=== PATIENT | male | born 1940 | race Caucasian/White ===

== ENCOUNTER 2021-02-02 18:06 | Emergency (ER) | payer MEDICARE ==
[2021-02-02 19:48] LABS: BASOPHIL 1.1 % (0-2); EOSINOPHIL 1.7 % (0-7); HCT 25.1 % (42.0-52.0); LYMPHOCYTE 24.3 % (15-48); MCH 25.9 pg (25.0-31.0); MCHC 29.5 g/dL (32.0-36.0); MCV 87.8 fL (78.0-100.0); MONOCYTE 8.2 % (0-12); MPV 9.3 fL (6.0-9.5); NEUTROPHIL 57.5 % (41-80); NRBC 3.2; PLT 166 K/uL (150-400); RBC 2.86 M/uL (4.70-6.00); RDW 22.5 % (11.5-14.0)
[2021-02-02 19:49] LABS: HGB 7.4 g/dl (13.2-18.0); WBC 5.4 K/uL (4.0-10.5)
[2021-02-02 20:06] LABS: ALBUMIN 2.5 g/dL (3.4-5.0); BILIRUBIN - TOTAL 0.3 mg/dL (0.2-1.0); BUN/CREAT RATIO (CALC) 17.1 RATIO; CREATININE 1.05 mg/dL (0.67-1.17); GLOBULIN (CALCULATION) 3.5 g/dL; MAGNESIUM 2.4 mg/dL (1.8-2.4); POTASSIUM 5.5 mmol/L (3.5-5.1)
[2021-02-02 20:19] LABS: BILIRUBIN NEGATIVE (NEGATIVE); BLOOD NEGATIVE Ery/uL (NEGATIVE); CLARITY CLEAR (CLEAR); COLOR YELLOW (YELLOW); GLUCOSE (U) NORMAL (NORMAL); LEUKOCYTES NEGATIVE Leu/uL (NEGATIVE); NITRITE NEGATIVE (NEGATIVE); PROTEIN 1+ mg/dL (NEGATIVE); SPECIFIC GRAVITY 1.015 (1.001-1.030); UROBILINOGEN 0.2 mg/dL (0.2-1.0); pH 7.5 (5.0-9.0)
[2021-02-02 20:24] LABS: SQUAMOUS EPITHELIAL CELLS RARE
== END 2021-02-02 21:48 | disposition home or self-care (01) ==
LOC: FER 18:06
PROVIDERS: Emergency Medicine Emergency Medical Services
DX: E11.649 Type 2 diabetes mellitus with hypoglycemia without coma (principal); I10 Essential (primary) hypertension; Z88.5 Allergy status to narcotic agent; Z88.0 Allergy status to penicillin; Z87.891 Personal history of nicotine dependence; Z98.890 Other specified postprocedural states
CPT/HCPCS: 36415; 80053; 81001; 83036; 83605; 83690; 83735; 84484; 85025; 93005; J7030

== ENCOUNTER 2021-02-17 17:38 | Day surgery (SDCO) | payer MEDICARE ==
[2021-02-17 18:59] LABS: BASOPHIL 0.7 % (0-2); HCT 21.9 % (42.0-52.0); HGB 6.6 g/dl (13.2-18.0); LYMPHOCYTE 27.8 % (15-48); MCH 27.5 pg (25.0-31.0); MCHC 30.1 g/dL (32.0-36.0); MCV 91.3 fL (78.0-100.0); MPV 10.2 fL (6.0-9.5); NRBC 3.4; PLT 172 K/uL (150-400); RDW 25.6 % (11.5-14.0)
[2021-02-17 19:05] LABS: ALBUMIN 2.6 g/dL (3.4-5.0); BILIRUBIN - TOTAL 0.2 mg/dL (0.2-1.0); BUN/CREAT RATIO (CALC) 15.8 RATIO; CREATININE 1.33 mg/dL (0.67-1.17); GLOBULIN (CALCULATION) 3.5 g/dL; POTASSIUM 4.9 mmol/L (3.5-5.1); TOTAL PROTEIN 6.1 g/dL (6.4-8.2)
[2021-02-17 19:11] LABS: LACTIC ACID 2.6 mmol/L (0.4-1.9)
[2021-02-17 19:13] LABS: BILIRUBIN NEGATIVE (NEGATIVE); BLOOD NEGATIVE Ery/uL (NEGATIVE); CLARITY CLEAR (CLEAR); COLOR YELLOW (YELLOW); GLUCOSE (U) NORMAL (NORMAL); LEUKOCYTES NEGATIVE Leu/uL (NEGATIVE); NITRITE NEGATIVE (NEGATIVE); PROTEIN 2+ mg/dL (NEGATIVE); SPECIFIC GRAVITY 1.025 (1.001-1.030); UROBILINOGEN 0.2 mg/dL (0.2-1.0); pH 5.5 (5.0-9.0)
[2021-02-17 19:15] LABS: SQUAMOUS EPITHELIAL CELLS RARE
[2021-02-17 21:28] LABS: CORONAVIRUS 2019 SARS-COV-2 NEGATIVE (NEGATIVE); INFLUENZA A NAA NEGATIVE (NEGATIVE)
[2021-02-18] MEDS ORDERED: LOPID600 MG PO (02:09)
[2021-02-18] MEDS ORDERED: PRAVACHOL20 MG PO (02:09)
[2021-02-18] MEDS ORDERED: NORVASC 10MG TA10 MG PO (02:11)
[2021-02-18] MEDS ORDERED: PERCOCET 5-3251 EACH PO (02:12)
[2021-02-18] MEDS ORDERED: CLARITIN10 MG PO (02:13)
[2021-02-18] MEDS ORDERED: COREG 6.25MG6.25 MG PO (02:13)
[2021-02-18] MEDS ORDERED: BICALUTAMIDE50 MG PO (02:14)
[2021-02-18] MEDS ORDERED: MOBIC7.5 MG PO (02:14)
[2021-02-18] MEDS ORDERED: PRINIVIL20 MG PO (02:15)
[2021-02-18] MEDS ORDERED: TERAZOSIN 2 MG C2 MG PO (02:16)
[2021-02-18] MEDS ORDERED: CALCIUM CARBO2500 GM PO (02:19)
[2021-02-18 11:17] LABS: BASOPHIL 0.9 % (0-2); EOSINOPHIL 1.7 % (0-7); HCT 32.2 % (42.0-52.0); LYMPHOCYTE 22.2 % (15-48); MCH 27.4 pg (25.0-31.0); MCHC 30.7 g/dL (32.0-36.0); MCV 89.2 fL (78.0-100.0); MONOCYTE 7.3 % (0-12); MPV 9.3 fL (6.0-9.5); NEUTROPHIL 60.3 % (41-80); NRBC 3.1; PLT 152 K/uL (150-400); RBC 3.61 M/uL (4.70-6.00); RDW 21.6 % (11.5-14.0); WBC 6.5 K/uL (4.0-10.5)
[2021-02-18 11:19] LABS: HGB 9.9 g/dl (13.2-18.0)
[2021-02-18 11:30] LABS: ALBUMIN 2.7 g/dL (3.4-5.0); BILIRUBIN - TOTAL 0.3 mg/dL (0.2-1.0); BUN/CREAT RATIO (CALC) 15.8 RATIO; CREATININE 1.01 mg/dL (0.67-1.17); GLOBULIN (CALCULATION) 3.5 g/dL; POTASSIUM 4.7 mmol/L (3.5-5.1); TOTAL PROTEIN 6.2 g/dL (6.4-8.2)
== END 2021-02-18 13:13 | disposition home health service (06) ==
LOC: FER 17:38 → FMS 22:07
PROVIDERS: Emergency Medicine; Emergency Medicine Emergency Medical Services; Nurse Practitioner; ADMIT Allergy & Immunology Allergy
DX: D64.9 Anemia, unspecified (principal); I95.89 Other hypotension; I11.0 Hypertensive heart disease with heart failure; I50.9 Heart failure, unspecified; C61 Malignant neoplasm of prostate; C79.51 Secondary malignant neoplasm of bone; E78.00 Pure hypercholesterolemia, unspecified; E11.9 Type 2 diabetes mellitus without complications; I25.10 Atherosclerotic heart disease of native coronary artery without angina pectoris; I25.2 Old myocardial infarction; M19.90 Unspecified osteoarthritis, unspecified site; M81.0 Age-related osteoporosis without current pathological fracture; E87.1 Hypo-osmolality and hyponatremia; Z87.891 Personal history of nicotine dependence; Z79.899 Other long term (current) drug therapy; Z88.0 Allergy status to penicillin; Z88.5 Allergy status to narcotic agent; Z20.822 Contact with and (suspected) exposure to COVID-19
CPT/HCPCS: 36415; 36430; 71045; 80053; 81001; 82270; 83605; 83735; 83880; 84484; 85025; 86850; 86900; 86901; 86922; 93005; 94010; 94760; 97162; 97166; 97530-GP; 97535; C9113; G0378; J3010; J7030; J7050; P9016; U0002

== ENCOUNTER 2021-02-27 06:17 | Inpatient (IN) | payer MEDICARE ==
[~2021-02-27] VITALS: Ht 172.7 cm; Wt 77.6 kg
[~2021-02-27 06:17] MED LIST: BICALUTAMIDE50 MG PO; CALCIUM CARBO2500 GM PO; CLARITIN10 MG PO; COREG 6.25MG6.25 MG PO; LOPID600 MG PO; MOBIC7.5 MG PO; NORVASC 10MG TA10 MG PO; PERCOCET 5-3251 EACH PO; PRAVACHOL20 MG PO; PRINIVIL20 MG PO; TERAZOSIN 2 MG C2 MG PO
[2021-02-27 06:56] LABS: INR 1.51 (0.9-1.2); PROTHROMBIN TIME 17.3 SECONDS (11.4-13.6)
[2021-02-27 07:07] LABS: BASOPHIL 0.6 % (0-2); EOSINOPHIL 1.6 % (0-7); HCT 17.2 % (42.0-52.0); LYMPHOCYTE 37.9 % (15-48); MCH 28.2 pg (25.0-31.0); MCHC 27.9 g/dL (32.0-36.0); MONOCYTE 7.9 % (0-12); MPV 10.3 fL (6.0-9.5); PLT 181 K/uL (150-400); RDW 22.2 % (11.5-14.0); WBC 17.6 K/uL (4.0-10.5)
[2021-02-27 07:10] LABS: ALBUMIN 2.1 g/dL (3.4-5.0); BILIRUBIN - TOTAL 0.3 mg/dL (0.2-1.0); BUN/CREAT RATIO (CALC) 39.8 RATIO; CREATININE 1.28 mg/dL (0.67-1.17); GLOBULIN (CALCULATION) 2.7 g/dL; TOTAL PROTEIN 4.8 g/dL (6.4-8.2)
[2021-02-27 07:12] LABS: HGB 4.8 g/dl (13.2-18.0); MCV 101.2 fL (78.0-100.0); NEUTROPHIL 38.2 % (41-80)
[2021-02-27 08:01] LABS: LACTIC ACID 14.7 mmol/L (0.4-1.9)
[2021-02-27 09:49] LABS: BILIRUBIN NEGATIVE (NEGATIVE); BLOOD NEGATIVE Ery/uL (NEGATIVE); CLARITY CLEAR (CLEAR); COLOR YELLOW (YELLOW); GLUCOSE (U) NORMAL (NORMAL); LEUKOCYTES NEGATIVE Leu/uL (NEGATIVE); NITRITE NEGATIVE (NEGATIVE); PROTEIN 1+ mg/dL (NEGATIVE); SPECIFIC GRAVITY 1.025 (1.001-1.030); UROBILINOGEN 0.2 mg/dL (0.2-1.0); pH 5.5 (5.0-9.0)
[2021-02-27 10:28] LABS: HCT 28.6 % (42.0-52.0); HGB 8.8 g/dL (13.2-18.0)
[2021-02-27 15:52] LABS: HCT 26.6 % (42.0-52.0); MCH 29.6 pg (25.0-31.0); MPV 9.7 fL (6.0-9.5); RBC 3.01 M/uL (4.70-6.00); RDW 17.3 % (11.5-14.0); WBC 7.9 K/uL (4.0-10.5)
[2021-02-27 16:00] LABS: HGB 8.9 g/dl (13.2-18.0); MCHC 33.5 g/dL (32.0-36.0); MCV 88.4 fL (78.0-100.0)
[2021-02-27] MEDS ORDERED: COREG 6.25MG6.25 MG PO (17:13)
--- NOTE | 2021-02-27 18:26 | NUR ---
[address] DR CONWAY PLACED A RIJ CENTRAL LINE,WITH STERILE TECHNIQUE, ATTEMPTED ON THE LEFT SIDE BUT NO UNSUCCESSFUL. STARTED LEVOPHED FOR PRESSURE SUPPORT, AND VERSED FOR SEDATION PROTONIX GTT FOR GI BLEED.
--- NOTE | 2021-02-27 19:08 | NUR ---
CVP 10
[2021-02-27 20:07] LABS: HCT 23.9 % (42.0-52.0); HGB 8.4 g/dL (13.2-18.0)
[2021-02-28 05:25] LABS: HCT 23.6 % (42.0-52.0); MCH 29.4 pg (25.0-31.0); MCHC 33.9 g/dL (32.0-36.0); MCV 86.8 fL (78.0-100.0); RBC 2.72 M/uL (4.70-6.00); RDW 17.8 % (11.5-14.0); WBC 5.8 K/uL (4.0-10.5)
[2021-02-28 05:38] LABS: BUN/CREAT RATIO (CALC) 38.1 RATIO; CREATININE 1.34 mg/dL (0.67-1.17)
[2021-02-28 05:39] LABS: POTASSIUM 3.9 mmol/L (3.5-5.1)
--- NOTE | 2021-02-28 17:09 | NUR ---
1153 PATIENT EXTUBATED BY LETTY IN RESPIRATORY ASSITED BY OTTONIEL BROUSSARD. PLACED ON 35% VENTI MASK. CHARY PATRICK IS POCindi WAS IN ROOM.
--- NOTE | 2021-03-01 00:46 | NUR ---
PATIENT NOW ON 50% VM PLACED ON BY RN MARYJANE. PATIENT AUDIBLE RALES THROUGHOUT. RN STATED PATIENT PULLING AT THINGS. SAT 92% HR 107. PATIENT DNR
[2021-03-01 05:24] LABS: BASOPHIL 0.6 % (0-2); EOSINOPHIL 0.6 % (0-7); HCT 20.7 % (42.0-52.0); HGB 6.8 g/dl (13.2-18.0); LYMPHOCYTE 16.1 % (15-48); MCH 29.3 pg (25.0-31.0); MCHC 32.9 g/dL (32.0-36.0); MCV 89.2 fL (78.0-100.0); MONOCYTE 6.8 % (0-12); MPV 10.3 fL (6.0-9.5); NEUTROPHIL 70.9 % (41-80); NRBC 3.7; RBC 2.32 M/uL (4.70-6.00); RDW 18.8 % (11.5-14.0); WBC 5.2 K/uL (4.0-10.5)
[2021-03-01 05:38] LABS: PLT 77 K/uL (150-400)
[2021-03-01 05:47] LABS: CREATININE 1.44 mg/dL (0.67-1.17); POTASSIUM 3.9 mmol/L (3.5-5.1)
--- NOTE | 2021-03-01 08:26 | NUR ---
Patient triggered for nutritional screen 2' diabetes dx. Patient NPO; will follow POC, pt currently DNR
--- NOTE | 2021-03-01 14:11 | NUR ---
03/01/21 Mr. Salcedo was living alone prior to admission. His niece / POA, Aida Henry, wishes to take Mr. Salcedo to her home with Hospice services. A referral was made to Hospice.
--- NOTE | 2021-03-02 10:37 | NUR ---
03/02/21 The EMS has been signed by Aida Herbert and notarized.
--- NOTE | 2021-03-02 12:53 | NUR ---
DISCHARGED HOME WITH HOSPICE, HOSPICE AND [facility]SHA[facility]ALLO NOTIFIED CENTRAL LINE AND IV REMOVED, WILLIS CATHETER LEFT IN PLACE
== END 2021-03-02 12:45 | disposition hospice, home (50) | DRG 208 ==
LOC: FER 06:17 → FICU 09:16
PROVIDERS: Allergy & Immunology Allergy; Emergency Medicine; Student in an Organized Health Care Education/Training Program; ADMIT Hospitalist
PROC: 0BH17EZ Insertion of Endotracheal Airway into Trachea, Via Natural or Artificial Opening (ICD-10-PCS; principal; 2021-02-27)
PROC: 5A1945Z Respiratory Ventilation, 24-96 Consecutive Hours (ICD-10-PCS; 2021-02-27)
PROC: 02HV33Z Insertion of Infusion Device into Superior Vena Cava, Percutaneous Approach (ICD-10-PCS; 2021-02-27)
PROC: B548ZZA Ultrasonography of Superior Vena Cava, Guidance (ICD-10-PCS; 2021-02-27)
PROC: 5A12012 Performance of Cardiac Output, Single, Manual (ICD-10-PCS; 2021-02-27)
PROC: 3E043XZ Introduction of Vasopressor into Central Vein, Percutaneous Approach (ICD-10-PCS; 2021-02-27)
PROC: 30233N1 Transfusion of Nonautologous Red Blood Cells into Peripheral Vein, Percutaneous Approach (ICD-10-PCS; 2021-02-27)
PROC: 30233N1 Transfusion of Nonautologous Red Blood Cells into Peripheral Vein, Percutaneous Approach (ICD-10-PCS; 2021-03-01)
DX: J96.21 Acute and chronic respiratory failure with hypoxia (principal); I21.A1 Myocardial infarction type 2; I46.8 Cardiac arrest due to other underlying condition; D62 Acute posthemorrhagic anemia; C79.51 Secondary malignant neoplasm of bone; E87.2 Acidosis; N17.9 Acute kidney failure, unspecified; I13.0 Hypertensive heart and chronic kidney disease with heart failure and stage 1 through stage 4 chronic kidney disease, or unspecified chronic kidney disease; K92.1 Melena; R57.9 Shock, unspecified; Z20.822 Contact with and (suspected) exposure to COVID-19; Z66 Do not resuscitate; C61 Malignant neoplasm of prostate; Z96.651 Presence of right artificial knee joint; Z51.5 Encounter for palliative care; E78.00 Pure hypercholesterolemia, unspecified; E11.9 Type 2 diabetes mellitus without complications; E86.1 Hypovolemia; I50.9 Heart failure, unspecified; G89.29 Other chronic pain; N18.9 Chronic kidney disease, unspecified; E11.22 Type 2 diabetes mellitus with diabetic chronic kidney disease; M81.0 Age-related osteoporosis without current pathological fracture; H40.9 Unspecified glaucoma; Z98.890 Other specified postprocedural states; I25.2 Old myocardial infarction; Z87.891 Personal history of nicotine dependence; Z88.0 Allergy status to penicillin; Z88.5 Allergy status to narcotic agent
CPT/HCPCS: 31500; 36415; 36430; 36600; 71045; 71275; 80048; 80053; 81001; 82009; 82150; 82803; 82962; 83605; 84439; 84443; 84480; 84484; 85014; 85018; 85025; 85610; 87040; 93005; 94002; 94640; 94760; 94762; 96374; 96375; C9113; J0171; J0610; J0692; J1170; J1940; J2060; J2250; J2270; J2405; J2543; J3010; J3370; J3490; J7030; J7040; J7050; J7070; J7120; P9016; Q9967; U0002